=== PATIENT | male | born 1955 | race Asian ===

== ENCOUNTER 2022-06-13 07:08 | Outpatient (CLI) | payer SELFPAY ==
--- NOTE | 2022-06-13 07:15 | CRLHL7_ITS ---
For Patients: As a result of the Cures Act, medical imaging exams and procedure reports are released immediately into your electronic medical record. You may view this report before your referring provider. If you have questions, please contact your health care provider. INDICATION: History of smoking TECHNIQUE: Ultrasound renal aorta COMPARISON: None FINDINGS: The proximal abdominal aorta measures 1.6 centimeter x 1.7 centimeter, mid aorta measures 1.5 centimeter x 1.5 centimeter, distal aorta measures 1.5 centimeter x 1.3 centimeter, right common iliac artery measures 0.7 centimeter x 1.0 centimeter, and the left common iliac artery measures 0.8 centimeter x 0.8 centimeters. There are no periaortic abnormalities evident. Normal Doppler waveforms. IMPRESSION: Normal ultrasound of the abdominal aorta. No sign of aneurysm. Dictated by Joey Abdul MD @ 06/13/2022 10:18:58 AM (Electronically Signed)
== END 2022-06-13 07:09 | disposition home or self-care (01) ==
PROVIDERS: PCP Registered Nurse; Visit Provider Family Medicine
DX: Z87.891 Personal history of nicotine dependence (principal)
CPT/HCPCS: 76706; T1013